=== PATIENT | female | born 1975 | race Caucasian/White ===

== ENCOUNTER 2025-01-03 10:35 | Outpatient (AMB) | payer OTHER, SELFPAY ==
--- OUTSIDE RECORDS SUMMARY | 2024-11-01 11:45 | XMS_ITS | Continuity of Care Document ---
Author Organization [facility] Address [address] [place] [address] Dr [address] MD [place]ón[place] [address] Phone Care Team Providers Care Lap Regulator Name Role Phone Lina Perry MD Unavailable [...] Providers Copied on Encounter [facility], [address] [place] [address] Dr [address] 1000Verónica MD, [id number], [place] tel:[phone] [place] Encounter for follow-up examination after completed treatment for conditions other than malignant neChronic venous hypertension (idiopathic) with other complications of right lower extremity 5 Vicky Mills. [address] [place] [address], Suite [facility] [place], [place], [place], [id number], [place]. tel:[phone] Referring Provider: Lina Perry MD, [address] [place] [address] Suite [facility] [place] [facility] [place], [place], [address] . tel:[phone] [facility], [address] [place] [address] Dr Turner 1000Suite [facility] [place], [id number], [place] tel:[phone] CVR - [place] - [place] Varicose veins of right lower extremity with other complications 5 David FIERRO RVT, SHELLIE Islas. [address] [place] [address], [place], [id number], [place]. tel:[phone] Referring Provider: Roshan Hernandez MD, RVT, SHELLIE, [address] [place] [address], [place], [address] . tel:[phone] [facility], [address] [place] [address] Dr Turner 1000ite 1000Verónica MD, [id number], [place] tel:[phone] CV[place] - [place] Encounter for follow-up examination after completed treatment for conditions other than malignant neoplasmChroni c venous hypertension (idiopathic) with other complications of right lower extremity 5 David FIERRO RVT, SHELLIE Islas. [address] [place] [address], [place], [id number], [place]. tel:[phone] Referring Provider: Roshan Hernandez MD, RVT, SHELLIE, [address] [place] [address] [address], [place], [address] . tel:[phone] [facility], [address] [place] [address] Dr Turner 1000Suite 1000Verónica MD, [id number], [place] tel:[phone] CVR - [facility] Chronic venous hypertension (idiopathic) with inflammation of right lower extremity Oct- 5 David FIERRO RVT, RPVI Robert. [address] [place] [address], [place], [id number], [place]. tel:[phone] [place] [facility], [address] [place] [address] Johnny 1000Suite 1000Verónica MD, [id number], [place] tel:[phone] CV[place] - [place] Encounter for follow-up examination after completed treatment for conditions other than malignant neoplasmChroni c venous hypertension (idiopathic) with other complications of left lower extremity Oct- 5 David FIERRO RVT, RPVI Robert. [address] [place] [address], [place], [id number], [place]. tel:[phone] Referring Provider: Roshan Hernandez MD, RVT, SHELLIE, [address] [place] [address], [place], [address] . tel:[phone] [place] [facility], [address] [place] [address] 1000Suite 1000Verónica MD, [id number], [place] tel:[phone] CVR - [facility] Encounter for follow-up examination after completed treatment for conditions other than malignant neoplasmChroni c venous hypertension (idiopathic) with other complications of left lower extremity Oct- 5 David FIERRO RVT, RPVI Robert. [address] [place] [address], [place], [id number], [place]. tel:[phone] Referring Provider: Roshan Hernandez MD, RVT, SHELLIE, [address] [place] [address], [place], [address] . tel:[phone] [place] [facility], [address] [place] [address] Johnny 1000Suite 1000Verónica MD, [id number], [place] tel:[phone] CVR - [facility] Varicose veins of left lower extremity with other complications 5 David FIERRO RVT, RPVI Robert. [address] [place] [address], [place], [id number], [place]. tel:[phone] Referring Provider: Roshan Hernandez MD, RVT, SHELLIE, [address] [place] [address], [place], [address] . tel:[phone] [facility], [address] [place] [address] Dr Turner 1000Suite 1000Verónica MD, [id number], tel:[phone] CVR - [facility] Varicose veins of left lower extremity with other complications 5 aDvid FIERRO RVT, RPVI Robert. [address] [place] [address], [place], [id number], [place]. tel:[phone] Office/Oupt E&M New Pt 45 Mins- CT & [place] [facility], [address] [place] [address] Dr Turner 1000Suite 1000Verónica MD, [id number], [place] tel:[phone] CVR - [place] Localized edemaChronic venous hypertension (idiopathic) without complications of bilateral lower extremityRestl ess legs syndromeEssent ial (primary) hypertensionPr uritus, unspecifiedPai n in left legCramp and spasm 5 David FIERRO RVT, RPVI Robert. [address] [place] [address], [place], [id number], [place]. tel:[phone] Referring Provider: Xochitl Go, [address] [place] [address], [address]. tel:[phone] [place] [facility], [address] [place] [address] [address]Suite 1000Verónica MD, [id number], [place] tel:[phone] CV - [facility] Chronic venous hypertension (idiopathic) with other complications of bilateral lower extremity 5 David FIERRO RVT, RPVI Robert. [address] [place] [address], [place], [id number], [place]. tel:[phone] Referring Provider: Roshan Hernandez MD, RVT, SHELLIE, [address] [place] [address], [place], [address] . tel:[phone] Family History Family Member Type Diagnosis Age At Onset No Information Payers Payer name Insurance type Covered green party ID Antonia zhengGidsy [facility] [id number] Social History Type Description Quantity Date Captured [...]
--- NOTE | 2025-01-03 10:30 | A.OFFVIS_ITS ---
VS Expanded 01/03/25 10:33 Height 5 ft 5 in Weight 195 lb BMI 32.4 Intake Visit Reasons: TV PO LSG 02/02/2019 Allergies lanolin (From LUBRIDERM) Allergy (Intermediate, Unverified 01/19/20 19:41) HIVES mineral oil (From LUBRIDERM) Allergy (Intermediate, Unverified 01/19/20 19:41) HIVES petrolatum,white (From LUBRIDERM) Allergy (Intermediate, Unverified 01/19/20 19:41) HIVES soap (From LUBRIDERM) Allergy (Intermediate, Unverified 01/19/20 19:41) HIVES sodium chloride (From LUBRIDERM) Allergy (Intermediate, Unverified 01/19/20 19:41) HIVES TIDE DETERGENT Adverse Reaction (Intermediate, Uncoded 01/19/20 19:41) RASH Medication List - Last Reconciled 01/03/25 by GUZMAN Riggs ferrous sulfate 325 mg PO DAILY lisinopril 10 mg PO DAILY HPI Comments Details: This?is a?49?yo F who is s/p LSG with hiatal hernia repair on?02/02/2019 (Dr. Estes). No complaints of nausea, emesis, abdominal pain or reflux, or constipation. Pt reports she has gained some weight back. Interested in GLP1 meds. Present meal plan includes: eating mostly protein, taking Fairlife shakes Exercise routine includes: cardio, salsa dancing 3-4x/week Telehealth Telehealth Telehealth Platform: Telephone Location of provider rendering services: practice address Location of patient: address on file Patient Identification confirmed using: Name, : Yes Telehealth method: voice only Patient verbally consented to treatment: Yes Patient verbally consented to billing insurance company: Yes Patient informed of any privacy concerns related to visit: Yes Minutes spent on Phone/Video with Pt.: 16 Assessment & Plan Assessment & Plan (1) Obesity: Code(s): E66.9 - Obesity, unspecified Category: Medical (2) S/P laparoscopic sleeve gastrectomy: Code(s): Z98.84 - Bariatric surgery status Category: Surgical Plan Pt is interested in starting GLP1. Reviewed contraindications, discussed dosing. Discussed need for adequate protein intake while on GLP1s as well as frequent communication with our office. Pt will check in with me weekly and is aware that subsequent Rx will be dependent on frequent communication. Gave [employer] sen info and encouraged pt to create a plan and follow. RTC 3 months for telephone visit. Medications: New tirzepatide (weight loss) (Zepbound) for 4 weeks 2.5 mg (0.5 mL) subcut QWEEK 2 mL 0RF
[2025-01-03 10:33] VITALS: BMI 32.4
--- OUTSIDE RECORDS SUMMARY | 2025-01-03 12:06 | XMS_ITS | Clinical Summary ---
Author Organization [facility] Address [address] [facility] [address] [place] [address] Phone Care Team Providers Care Veterinary Inspector Name Role Phone Guillermina Davis Primary Care Provider Allergies No known active allergies Medications Medication-Free Text Vitamin D Active lisinopril (PRINIVIL,ZESTR IL) 10 MG tablet Take 1 tablet by mouth every morning. 10/17/2022 Active busPIRone (BUSPAR) 10 MG tablet Take 1 tablet by mouth 2 (two) times a day. 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 Alcohol Use Standard Drinks/Week Comments Not Currently 0 (1 standard drink = 0.6 oz pure alcohol) Drinks maybe twice a yr on special occassions. Education Answer Date Recorded Are you interested in more education? Not on ovidio e 08/29/2022 Are you concerned about learning? Not on file 08/29/2022 No 08/29/2022 No 08/29/2022 Digital Access Answer Date Recorded No 09/26/2022 No 09/26/2022 Reliable internet access at home? Not on file 09/26/2022 Device with a working camera? Not on file Education Answer Date Recorded What is the highest level of school you have completed or the highest degree you have received? 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 on file Not on file Not on file Last Filed Vital Signs Vital Sign Reading Time Taken Comments Blood Pressure 147/95 10/21/2023 1:13 PM EDT Pulse 62 10/21/2023 1:13 PM EDT Temperature - - Respiratory Rate - - Oxygen Saturation 98% 10/21/2023 1:13 PM EDT Inhaled Oxygen Concentration - - Weight 81.6 kg (180 lb) 10/21/2023 1:13 PM EDT Height 165.1 cm (5' 5 ) 10/21/2023 1:13 PM EDT Body Mass Index 29.95 10/21/2023 1:13 PM EDT Plan of Treatment Health Maintenance Due Date Last Done Comments CREATININE LEVEL 1974 POTASSIUM LEVEL 1974 HEPATITIS C SCREENING 1992 HIV ONE-TIME SCREENING (18-6 5 YEARS) 1992 PAP SMEAR 1995 SCREENING FOR DIABETES 2009 MAMMOGRAM 2014 COLOGUARD 2019 COLONOSCOPY 2019 COLORECTAL CANCER SCREENING 2019 FIT TEST 2019 FOBT 2019 SIGMOIDOSCOPY 2019 VIRTUAL COLONOSCOPY 2019 Adult Td,Tdap Booster 09/15/2022 09/15/2012 , 09/11/2005 PNEUMOCOCCAL VACCINES (50+ years) (1 of 1 - PCV) 2024 ZOSTER VACCINES (1 of 2) 2024 DEPRESSION SCREENING 07/29/2024 07/30/2023, 07/30/2023 INFLUENZA VACCINE (#1) 2024 04/22/2010 COVID-19 VACCINE (2 - 2024-2 6 season) 2025 08/08/2020 LIPID PANEL 10/19/2028 10/20/2023, 10/20/2023, 10/05/2006 SMOKING STATUS SCREENING (On ce After 26 Yrs) Completed 10/21/2023 HEPATITIS A VACCINES Aged Out No long er eligible based on patient's age to complete this topic HIB VACCINES Aged Out No longer eligi ble based on patient's age to complete this topic MENINGOCOCCAL VACCINES (ACWY) Aged Out No longer eligible based on patient's age to complete this topic MENINGOCOCCAL VACCINES (B) Aged Out N o longer eligible based on patient's age to complete this topic Medical Devices Not on file Insurance [facility] Care Teams Veterinary Inspector Relationship Specialty Start Date End Date Guillermina Davis PA [address] [place] [address] [email or web address] PCP - General Physician Sausage Mixer 06/17/22 Additional Source Comments The information contained in this document represents components of the legal health record. It is not the complete legal health record.[facility]
--- OUTSIDE RECORDS SUMMARY | 2025-01-03 12:06 | XMS_ITS | Clinical Summary ---
Author Organization [facility] Address [address] [place] [address] Care Team Providers Care Tailor Women'S Garment Alteration Name Role Phone Pcp, No Primary Care Provider Unavailabl e Allergies No known active allergies Medications oxyCODONE-acetam inophen (Percocet) 5-325 mg tablet Take 1 tablet by mouth every 6 (six) hours if needed for severe pain for up to 3 days. 12 tablet 05/29/2024 Active Social History Tobacco Use Types Packs/Day Years Used Date Smoking Tobacco: Never Assessed Comments No Sex and Gender Information Value Date Recorded Sex Assigned at Not on file Legal Sex Female 2:56 AM EST Gender Identity Not on file Sexual Orientation Not on file Last Filed Vital Signs Vital Sign Reading Time Taken Comments Blood Pressure 115/66 05/29/2024 9:45 AM EST Pulse 68 05/29/2024 9:45 AM EST Temperature 36.9 C (98.4 F) 05/29/2024 3:27 AM EST Respiratory Rate 15 05/29/2024 9:45 AM EST Oxygen Saturation 98% 05/29/2024 9:45 AM EST Inhaled Oxygen Concentration - - Weight 82.2 kg (181 lb 3.5 oz) 05/29/2024 3:27 A M EST Height 167.6 cm (5' 6 ) 05/29/2024 3:27 AM EST Body Mass Index 29.25 05/29/2024 3:27 AM EST Plan of Treatment Scheduled Referrals Name Type Priority Associated Diagnoses Order Schedule Ambulatory referral to Orthopaedic Surgery Outpatient Referral Routine Closed fracture of distal ends of left radius and ulna, initial encounter Expected: 05/29/2024, Expires: 05/29/2025 Health Maintenance Due Date Last Done Comments CT Colonography 1974 Colonoscopy 1974 Colorectal Cancer Screening 1974 FIT-DNA 1974 FIT 1974 FOBT 1974 Hepatitis C Screening 1974 Mammogram 1974 Sigmoidoscopy 1974 Tdap and Td Vaccines Adult 1993 Pap Smear 1995 Cervical Cancer Screening 2004 HPV/Cotest 2004 Annual Physical Exam 11/20/2022 11/20/2021, 11/19/2020, 11/18/2019, Additional history exists COVID-19 Vaccine ( - 2023- season) 2024 Pneumococcal Vaccine: 50+ Years (1 of 1 - PCV) 2024 Zoster Vaccines (1 of 2) 2024 Influenza Vaccine (#1) 2025 HIB Vaccines Aged Out No longer eligi ble based on patient's age to complete this topic HPV Vaccines (No Doses Required) Completed Hepatitis A Vaccines Aged Out No long er eligible based on patient's age to complete this topic IPV Vaccines Aged Out No longer eligi ble based on patient's age to complete this topic Meningococcal Vaccine Aged Out No familia fermin eligible based on patient's age to complete this topic Pneumococcal Vaccine: Peds (0 to 5 Yrs) and At-Risk Pts (6 to 49 Yrs) Aged Out No longer eligible based on patient's age to complete this topic RSV <20 Months Aged Out No longer mandie gible based on patient's age to complete this topic Insurance [facility] Care Teams Tailor Women'S Garment Alteration Relationship Specialty Start Date End Date Pcp, [place] [address] PCP - General 05/29/24
--- OUTSIDE RECORDS SUMMARY | 2025-01-03 12:06 | XMS_ITS | Encounter Summary ---
Author Organization [facility] Address [address] [facility] [address] [place] [address] Phone Care Team Providers Care Radiotelegraphist Name Role Phone Guillermina Davis Primary Care Provider [phone] Olga Atkins PIPE FOREMAN Unavailable mar Aldair Jones Unavailable [email or web address] Encounter Details Date Type Department Care Team (Late st Contact Info) Description 01/12/2023 Procedure Pass [place] Admitting Dept - Virtual Department [address] [place] [address] Social History Tobacco Use Types Packs/Day Years Used Date Smoking Tobacco: Never Smokeless Tobacco: Never Alcohol Use Standard Drinks/Week Comments Not Currently 0 (1 standard drink = 0.6 oz pur e alcohol) Education Answer Date Recorded Are you interested in more education? Not on ovidio e 08/29/2022 Are you concerned about learning? Not on file 08/29/2022 No 08/29/2022 No 08/29/2022 Digital Access Answer Date Recorded No 09/26/2022 No 09/26/2022 Reliable internet access at home? Not on file 09/26/2022 Device with a working camera? Not on file Comments Unknown Sex and Gender Information Value Date Recorded Sex Assigned at Female 05/20/2022 6:04 AM EST Legal Sex Female 9:30 PM EDT Gender Identity Female 05/20/2022 6:04 AM EST Sexual Orientation Straight 05/20/2022 6: 04 AM EST documented as of this encounter Plan of Treatment Not on file documented as of this encounter Visit Diagnoses Not on filedocumented in this encounter Care Teams Radiotelegraphist Relationship Specialty Start Date End Date Guillermina Davis PA [address] [place] [address] [email or web address] PCP - General Physician Events Administrative Assistant 06/17/22 Olga Atkins LCSW [address] [place] [address] [email or web address] [facility] Social Work 07/06/23 01/10/24 Aldair Jones [address] [place] [address] [email or web address] Community Health Worker 09/01/23 11/01/23 documented as of this encounter Additional Source Comments The information contained in this document represents components of the legal health record. It is not the complete legal health record.[facility]
--- OUTSIDE RECORDS SUMMARY | 2025-01-03 12:06 | XMS_ITS | Encounter Summary ---
Author Organization [facility] Address [address] [facility] [address] [place] [address] Phone Care Team Providers Care Steel Welder Name Role Phone Guillermina Davis Primary Care Provider [phone] Olga Atkins ACCOUNTING CLERKS SUPERVISOR Unavailable mar Aldair Jones Unavailable [email or web address] Encounter Details Date Type Department Care Team (Late st Contact Info) Description 10/27/2023 Procedure Pass [facility] Endoscopy Admitting Dept Virtual Department [address] [place] [address] Social History Tobacco Use Types Packs/Day Years Used Date Smoking Tobacco: Never Passive Smoke Exposure: Never Smokeless Tobacco: Never Comments:Never smoked. Alcohol Use Standard Drinks/Week Comments [...] file Not on file Not on file documented as of this encounter Plan of Treatment Not on file documented as of this encounter Visit Diagnoses Not on filedocumented in this encounter Additional Health Concerns Assessment Noted Time PHQ-9 Depression Total Score: 18 024 8:14 AM EDT PHQ-2 Depression Total Score: 07/30/19 24 8:14 AM EDT documented as of this encounter Care Teams Steel Welder Relationship Specialty Start Date End Date Guillermina Davis PA [address] [place] [phone] [email or web address] PCP - General Physician Telecommunications Consultant 06/17/22 Olga Atkins, ACCOUNTING CLERKS SUPERVISOR [address] [place] [address] [facility] 07/06/23 01/10/24 Aldair Jones [address] [place] [address] [email or web address] [facility] Community Health Worker 09/01/23 11/01/23 documented as of this encounter Additional Source Comments The information contained in this document represents components of the legal health record. It is not the complete legal health record.[facility]
--- OUTSIDE RECORDS SUMMARY | 2025-01-03 12:06 | XMS_ITS | Encounter Summary ---
Author Organization [facility] Address [address] [place] [phone] Phone Care Team Providers Care Delivery Table Feeder Name Role Phone Roseanne Morris MD Primary Care Provider [phone] Guillermina Davis Primary Care Provider [phone] Olga Atkins INTERIOR BLOCK WIRER Unavailable mar [email or web address] Aldair Jones Unavailable [email or web address] Encounter Details Date Type Department Care Team (Late st Contact Info) Description 04/21/2022 Procedure Pass [facility] Endoscopy Admitting Dept Virtual Department [address] [place] [address] Social History Tobacco Use Types Packs/Day Years Used Date Smoking Tobacco: Never Assessed Comments Unknown Sex and Gender Information Value [...] on filedocumented in this encounter Care Teams Delivery Table Feeder Relationship Specialty Start Date End Date Roseanne Morris MD [address] [place] [address] [email or web address] PCP - General 02/19/17 06/16/22 Guillermina Davis PA [address] [place] [address] [email or web address] PCP - General Physician Black Top Machine Operator 06/17/22 Olga Atkins LCSW [address] [place] [address] [email or web address] [facility] 07/06/23 01/10/24 Aldair Jones [address] [place] [address] [email or web address] [email or web address] 09/01/23 11/01/23 documented as of this encounter Additional Source Comments The information contained in this document represents components of the legal health record. It is not the complete legal health record.[facility]
--- OUTSIDE RECORDS SUMMARY | 2025-01-03 12:06 | XMS_ITS ---
Author Name [facility] Organization Unknown History of Medication Use Medication Directions Dispensed Refills Start Date End Date Stat us HYDROmorphone (PF) (Dilaudid) injection 0.5 mg 0.5 mg, intramuscular, Once, On 05/29/24 at 0751, For 1 dose 05/29/2024 05/29/2024 completed ketorolac (Toradol) injection 30 mg 30 mg, intramuscular, Once, On 05/29/24 at 0643, For 1 dose 05/29/2024 05/29/2024 completed ondansetron ODT (Zofran-Odt) dispersible tablet 4 mg 4 mg, oral, Once, On 05/29/24 at 0751, For 1 dose, dissolve on tongue 05/29/2024 05/29/2024 completed oxyCODONE-acetaminop hen (Percocet) 5-325 mg tablet Take 1 tablet by mouth every 6 (six) hours if needed for severe pain for up to 3 days. 05/29/2024 active Problems Problem Status Onset Date Problem Type Date of Resoluti on Source Closed fracture of distal ends of left radius and ulna, initial encounter active EncounterDiagnosisAct [id number] H Encounters Encounter Type Encounter Reason Primary Diagnosis Location Date Emergency Unspecified fracture of the lower end of left radius, initial encounter for closed fracture Unspecified fracture of the lower end of left radius, initial encounter for closed fracture [facility] 05/29/2024 Emergency [facility] 05/29/19 Care Team Organization Name Specialty Phone Email Start Date End Da [facility] 07/13/2024 [facility] 05/29/2024
== END 2025-01-03 10:46 | disposition home or self-care (01) ==
LOC: HO.HBS 10:35
PROVIDERS: PCP Nurse Practitioner Family; Visit Provider Physician Assistant Surgical
DX: E66.9 Obesity, unspecified (principal); Z68.32 Body mass index [BMI] 32.0-32.9, adult; Z90.3 Acquired absence of stomach [part of]; Z98.84 Bariatric surgery status
CPT/HCPCS: 98009

== ENCOUNTER 2025-01-05 16:27 | Outpatient (REF) | payer OTHER, SELFPAY ==
--- OUTSIDE RECORDS SUMMARY | 2024-11-01 11:45 | XMS_ITS | Continuity of Care Document ---
Author Organization [facility] Address [address] [place] [address] Dr [address] MD [place] [address] Phone Care Team Providers Care Brim Ironer Hand Name Role Phone Lina Perry MD Unavailable Unavailable Allergies, Adverse Reactions, Alerts Substance Reaction Status Criticality No Known Allergies Active No Inform ation Procedures Procedure Date Duplex Scan-extrem Veins; Uni/ CT & [place] J Ultrason Guidan Needle Bx-rad- CT & MA J Inj Sclerosing Solution; Sngl- CT & [place] J Duplex Scan-extrem Veins; Uni/ CT & [place] J Endovenous Laser, 1st Vein- CT & MA Duplex Scan-extrem Veins; Uni/ CT & [place] J Duplex Scan-extrem Veins; Uni/ CT & [place] J Inj Scleros Solut; Mx Veins 1- CT & MA J Ultrason Guidan Needle Bx-rad- CT & MA J Endovenous Laser, 1st Vein- CT & [place] Office/Oupt E&M New Pt 45 Mins- CT & [place] Surgical Stockings Mediven Plus Thigh Wa ist - Duplex Scan-extrem Veins; Comp- CT & [place] Advance Directives Directive Yes / No Effective Date File Name No Information Encounters Encounter Description Practice Location Reason(s) For Visit Diagnoses Date Provider Providers Copied on Encounter [facility], [address] [place] [address] Dr [address]Verónica [place], [id number], [place] tel:[phone] [place] Encounter for follow-up examination after completed treatment for conditions other than malignant neChronic venous hypertension (idiopathic) with other complications of right lower extremity 5 Vicky Mills. [address] [place] [address], Suite [facility], [place], [place], [id number], [place]. tel:[phone] Referring Provider: Lina Perry MD, [address] [place] [address] [address] [facility], [place], [address] . tel:[phone] [facility], [address] [place] [address] Dr Turner 1000Suite [facility], [id number], [place] tel:[phone] [place] Varicose veins of right lower extremity with other complications 5 David FIERRO RVT, SHELLIE Islas. [address] [place] [address], [place], [id number], [place]. tel:[phone] Referring Provider: Roshan Hernandez MD, RVT, SHELLIE, [address] [place] [address], [place], [address] . tel:[phone] [facility], [address] [place] [address] Dr Turner [address] 1000Verónica MD, [id number], [place] tel:[phone] [place] Encounter for follow-up examination after completed treatment for conditions other than malignant neoplasmChroni c venous hypertension (idiopathic) with other complications of right lower extremity 5 David FIERRO RVT, SHELLIE Islas. [address] [place] [address], [place], [id number], [place]. tel:[phone] Referring Provider: Roshan Hernandez MD, RVT, SHELLIE, [address] [place] [address] [address], [place], [address] . tel:[phone] [facility], [address] [place] [address] Dr Turner [address] 1000Verónica [place], [id number], [place] tel:[phone] CVR - [facility] Chronic venous hypertension (idiopathic) with inflammation of right lower extremity Oct- 5 David FIERRO RVT, RPVI Robert. [address] [place] [address], [place], [id number], [place]. tel:[phone] [place] [facility], [address] [place] [address] Johnny 1000[address] 1000Verónica MD, [id number], [place] tel:[phone] [place] Encounter for follow-up examination after completed treatment for conditions other than malignant neoplasmChroni c venous hypertension (idiopathic) with other complications of left lower extremity Oct- 5 David FIERRO RVT, RPVI Robert. [address] [place] [address], [place], [id number], [place]. tel:[phone] Referring Provider: Roshan Hernandez MD, RVT, SHELLIE, [address] [place] [address], [place], [address] . tel:[phone] [place] [facility], [address] [place] [address] 1000Suite 1000Verónica MD, [id number], [place] tel:[phone] CVR - [facility] Encounter for follow-up examination after completed treatment for conditions other than malignant neoplasmChroni c venous hypertension (idiopathic) with other complications of left lower extremity Oct- 5 David FIERRO RVT, RPVI Robert. [address] [place] [address], [place], [id number], [place]. tel:[phone] Referring Provider: Roshan Hernandez MD, RVT, SHELLIE, [address] [place] [address], [place], [address] . tel:[phone] [place] [facility], [address] [place] [address] Johnny 1000[address] 1000Verónica MD, [id number], [place] tel:[phone] CVR - [facility] Varicose veins of left lower extremity with other complications 5 David FIERRO RVT, RPVI Robert. [address] [place] [address], [place], [id number], [place]. tel:[phone] Referring Provider: Roshan Hernandez MD, RVT, SHELLIE, [address] [place] [address], [place], [address] . tel:[phone] [facility], [address] [place] [address] Dr Turner 1000[address] 1000Verónica MD, [id number], tel:[phone] CVR - [facility] Varicose veins of left lower extremity with other complications 5 David FIERRO RVT, RPVI Robert. [address] [place] [address], [place], [id number], [place]. tel:[phone] Office/Oupt E&M New Pt 45 Mins- CT & [place] [facility], [address] [place] [address] Dr Turner 1000Suite 1000Verónica MD, [id number], [place] tel:[phone] [place] Localized edemaChronic venous hypertension (idiopathic) without complications of bilateral lower extremityRestl ess legs syndromeEssent ial (primary) hypertensionPr uritus, unspecifiedPai n in left legCramp and spasm 5 David FIERRO RVT, RPVI Robert. [address] [place] [address], [place], [id number], [place]. tel:[phone] Referring Provider: Xochitl Go, [address] [place] [address], [address]. tel:[phone] [place] [facility], [address] [place] [address] [address] 1000Verónica MD, [id number], [place] tel:[phone] CV - [facility] Chronic venous hypertension (idiopathic) with other complications of bilateral lower extremity 5 David FIERRO RVT, RPVI Robert. [address] [place] [address], [place], [id number], [place]. tel:[phone] Referring Provider: Roshan Hernandez MD, RVT, SHELLIE, [address] [place] [address], [place], [address] . tel:[phone] Family History Family Member Type Diagnosis Age At Onset No Information Payers Payer name Insurance type Covered green party ID Antonia [facility]hengSw[facility] [id number] Social History Type Description Quantity Date Captured Comments Sex Female Smoking Status No Information Chief Complaint And Reason For Visit No Information Reason For Referral Reason For Referral No Information Plan Of Treatment Date Type Action Status Goal Diet education completed Referral Ordered: Weight management: Referral to physician timeframe: 3 Months (related to Body mass index (BMI) 29.0-29.9, adult) ordered Appointment Nancy Yan BOOKED Appointment Nancy Yan BOOKED History Of Present Illness Encounter Date Complaint History Of Prese nt Illness No Information Functional Status Date Functional Assessmen t No Information Instructions Date Instruction Additional Infor mation Compression stocking usage as conservative measure Related to Chronic venous hypertension (idiopathic) without complications of bilateral lower extremity Patient education booklet given Related to Chronic venous hypertension (idiopathic) without complications of bilateral lower extremity Lifestyle education Related to B alma delia mass index (BMI) 29.0-29.9, adult Giving Encouragement to exercise Related to Body mass index (BMI) 29.0-29.9, adult Diet education Related to Body mass index (BMI) 29.0-29.9, adult Assessments Type Assessment Date No Information Patient Care Teams Name Effective Dates (start - stop) Status Members No Information
--- OUTSIDE RECORDS SUMMARY | 2025-01-05 16:45 | XMS_ITS | Clinical Summary ---
Author Organization [facility] Address [address] [facility] [address] [place] [address] Phone Care Team Providers Care Hand Shoe Cutter Name Role Phone Guillermina Davis Primary Care Provider [phone] Allergies No known active allergies Medications Medication-Free [...] topic Medical Devices Not on file Insurance [facility] Care Teams Hand Shoe Cutter Relationship Specialty Start Date End Date Guillermina Davis PA [address] [place] [address] [email or web address] PCP - General Physician Carburizing Furnace Operator 06/17/22 Additional Source Comments The information contained in this document represents components of the legal health record. It is not the complete legal health record.[facility]
--- OUTSIDE RECORDS SUMMARY | 2025-01-05 16:46 | XMS_ITS | Encounter Summary ---
Author Organization [facility] Address [address] [facility] [address] [place] [address] Phone Care Team Providers Care Group Leader Name Role Phone Guillermina Davis Primary Care Provider [phone] Olga Atkins CLOUD SERVICES ARCHITECT Unavailable mar [email or web address] Aldair Jones Unavailable [email or web address] Encounter Details Date Type Department Care Team (Late st Contact Info) Description 10/27/2023 Procedure Pass [facility] Endoscopy Admitting Dept Virtual Department [address] [place] [address] Social History Tobacco Use Types Packs/Day Years [...] documented as of this encounter Care Teams Group Leader Relationship Specialty Start Date End Date Guillermina Davis PA [address] [place] [phone] [email or web address] PCP - General Physician Blow Down Helper 06/17/22 Olga Atkins, CLOUD SERVICES ARCHITECT [address] [place] [address] [facility] 07/06/23 01/10/24 Aldair Jones [address] [place] [address] [email or web address] [facility] Community Health Worker 09/01/23 11/01/23 documented as of this encounter Additional Source Comments The information contained in this document represents components of the legal health record. It is not the complete legal health record.[facility]
--- OUTSIDE RECORDS SUMMARY | 2025-01-05 16:46 | XMS_ITS | Encounter Summary ---
Author Organization [facility] Address [address] [place] [address] Phone Care Team Providers Care Speech Correction Consultant Name Role Phone Roseanne Morris MD Primary Care Provider [phone] Guillermina Davis Primary Care Provider Olga Atkins TASSEL CLIPPER Unavailable mar [email or web address] Aldair Jones Unavailable [email or web address] Encounter Details Date Type Department Care Team (Late st Contact Info) Description 04/21/2022 Procedure Pass [facility] Endoscopy Admitting Dept Virtual Department [address] [place] [address] Social History Tobacco Use Types Packs/Day Years [...] on filedocumented in this encounter Care Teams Speech Correction Consultant Relationship Specialty Start Date End Date Roseanne Morris MD [address] [place] [address] [email or web address] PCP - General 02/19/17 06/16/22 Guillermina Davis PA [address] [place] [address] [email or web address] PCP - General Physician Student Services Counselor 06/17/22 Olga Atkins LCSW [address] [place] [address] [email or web address] [facility] 07/06/23 01/10/24 Aldair Jones [address] [place] [address] [email or web address] Community Health Worker 09/01/23 11/01/23 documented as of this encounter Additional Source Comments The information contained in this document represents components of the legal health record. It is not the complete legal health record.[facility]
--- OUTSIDE RECORDS SUMMARY | 2025-01-05 16:46 | XMS_ITS | Encounter Summary ---
Author Organization [facility] Address [address] [facility] [address] [place] [address] Phone Care Team Providers Care Edge Grinder Machine Name Role Phone Guillermina Davis Primary Care Provider Olga Atkins SOFTWARE CLIENT ARCHITECT Unavailable mar Aldair Jones Unavailable [email or web address] Encounter Details Date Type Department Care Team (Late st Contact Info) Description 01/12/2023 Procedure Pass [place] Admitting Dept - Virtual Department [address] [place] [address] Social History Tobacco Use Types Packs/Day Years [...] on filedocumented in this encounter Care Teams Edge Grinder Machine Relationship Specialty Start Date End Date Guillermina Davis PA [address] [place] [address] [email or web address] PCP - General Physician Superintendent Drivers 06/17/22 Olga Atkins LCSW [address] [place] [address] [email or web address] [facility] Social Work 07/06/23 01/10/24 Aldair Jones [address] [place] [address] [email or web address] Community Health Worker 09/01/23 11/01/23 documented as of this encounter Additional Source Comments The information contained in this document represents components of the legal health record. It is not the complete legal health record.[facility]
--- OUTSIDE RECORDS SUMMARY | 2025-01-05 16:46 | XMS_ITS | Clinical Summary ---
Author Organization [facility] Address [address] [place] [address] Care Team Providers Care Ammonia Nitrate Operator Name Role Phone Pcp, No Primary Care [...] patient's age to complete this topic Insurance [facility] Care Teams Ammonia Nitrate Operator Relationship Specialty Start Date End Date Pcp, [place] [address] PCP - General 05/29/24
== END 2025-01-05 16:28 | disposition home or self-care (01) ==
LOC: HO.LAB 16:27
PROVIDERS: PCP Nurse Practitioner Family; Visit Provider Physician Assistant Surgical
DX: Z98.84 Bariatric surgery status (principal)
CPT/HCPCS: 36415; 84425; 84590; 84630